=== PATIENT | male | born 1970 | race Caucasian/White ===

== ENCOUNTER → 2019-06-10 10:18 | Outpatient (BNVA) | payer OTHER, SELFPAY | PROVIDERS: Family Provider Nurse Practitioner Family; PCP Nurse Practitioner Family; Visit Provider Registered Nurse | DX: I10 Essential (primary) hypertension (principal); E03.9 Hypothyroidism, unspecified | CPT/HCPCS: 80053; 80061; 84443 ==

== ENCOUNTER → 2019-08-01 15:34 | Outpatient (BNVA) | payer OTHER, SELFPAY | PROVIDERS: Family Provider Nurse Practitioner Family; PCP Nurse Practitioner Family; Visit Provider Registered Nurse | DX: R50.9 Fever, unspecified (principal); R05 Cough; Z20.828 Contact with and (suspected) exposure to other viral communicable diseases | CPT/HCPCS: 87635 ==

== ENCOUNTER → 2019-08-17 14:45 | Outpatient (BNVA) | payer OTHER, SELFPAY | PROVIDERS: Family Provider Nurse Practitioner Family; PCP Nurse Practitioner Family; Visit Provider Registered Nurse | DX: R50.9 Fever, unspecified (principal); U07.1 COVID-19; Z20.828 Contact with and (suspected) exposure to other viral communicable diseases | CPT/HCPCS: 87635 ==

== ENCOUNTER → 2019-08-26 15:33 | Outpatient (BNVA) | payer OTHER, SELFPAY | PROVIDERS: Family Provider Nurse Practitioner Family; PCP Nurse Practitioner Family; Visit Provider Registered Nurse | DX: U07.1 COVID-19 (principal) | CPT/HCPCS: 87635 ==

== ENCOUNTER → 2019-08-31 09:07 | Outpatient (BNVA) | payer OTHER, SELFPAY | PROVIDERS: Family Provider Nurse Practitioner Family; PCP Nurse Practitioner Family; Visit Provider Registered Nurse | DX: U07.1 COVID-19 (principal) | CPT/HCPCS: 87635 ==

== ENCOUNTER → 2019-09-08 10:16 | Outpatient (BNVA) | payer OTHER, SELFPAY | PROVIDERS: Family Provider Nurse Practitioner Family; PCP Nurse Practitioner Family; Visit Provider Registered Nurse | DX: U07.1 COVID-19 (principal) | CPT/HCPCS: 87635 ==

== ENCOUNTER → 2019-09-19 11:24 | Outpatient (BNVA) | payer OTHER, SELFPAY | PROVIDERS: Family Provider Nurse Practitioner Family; PCP Nurse Practitioner Family; Visit Provider Registered Nurse | DX: U07.1 COVID-19 (principal) | CPT/HCPCS: 87635 ==

== ENCOUNTER 2019-11-01 12:02 | Outpatient (CLI) | payer OTHER, SELFPAY ==
[2019-11-01 12:10] VITALS: BMI 29.8
--- NOTE | 2019-11-01 13:00 | ECG_ITS ---
[facility] Test Date: 2019-11-01 Pat Name: Sj Aguilar Department: Room: Gender: Male [employer] Cooper: : 1970 Requested By: Samantha Herzog Order Number: [id number] Omar MD: Javid Gunderson M.D. Interpretive Statements NAME OF STUDY: TREADMILL STRESS TEST INDICATION: Left sided chest pain EXERCISE DATA: The patient was exercised by Shaun protocol. Baseline heart rate was 82 beats per minute. Baseline blood pressure was 141/85 millimeters of mercury. Target heart rate was 170 beats per minute. Maximum heart rate achieved was 146, which was 85 % of the target heart rate. Maximum blood pressure was 198/93 millimeters of mercury. Total exercise time was 9 minutes. Maximum METs achieved was 10.2, maximum VO2 was 35.7. The reason for ending the test was maximum effort achieved. The patient complained of shortness of breath during the stress test, which then resolved at the end of the test. ELECTROCARDIOGRAM: BASELINE: Showed sinus rhythm, normal axis, no significant ST-T changes at the baseline noted. EXERCISE: At the peak exercise level, no significant ST-T changes suggestive of ischemia noted. RECOVERY: During the recovery period, heart rate dropped appropriately. No significant ST-T changes in the recovery suggestive of ischemia noted. CONCLUSION: 1. Exercise capacity good. 2. Heart rate response was appropriate. 3. Blood pressure response was hypertensive. 4. Symptoms not suggestive of ischemia. 5. Electrocardiogram portion of the stress test was not suggestive of ischemia. Electronically Signed On 11-11-2019 16:44:16 CDT by Javid Gunderson M.D. [id number]
[2019-11-01 13:04] VITALS: BP 159/57; PULSE 92
== END 2019-11-01 12:03 | disposition home or self-care (01) ==
LOC: CDL 12:03
PROVIDERS: PCP Nurse Practitioner Family; Visit Provider Registered Nurse
DX: R07.89 Other chest pain (principal)
CPT/HCPCS: 93017

== ENCOUNTER → 2019-11-18 09:29 | Outpatient (BNVA) | payer OTHER, SELFPAY | PROVIDERS: PCP Nurse Practitioner Family; Visit Provider Registered Nurse | DX: E03.9 Hypothyroidism, unspecified (principal); E78.5 Hyperlipidemia, unspecified; I10 Essential (primary) hypertension | CPT/HCPCS: 80053; 80061; 84443; 85025 ==

== ENCOUNTER → 2020-04-30 13:22 | Outpatient (BNVA) | payer OTHER, SELFPAY | PROVIDERS: PCP Nurse Practitioner Family; Visit Provider Registered Nurse | DX: R10.9 Unspecified abdominal pain (principal) | CPT/HCPCS: 81000 ==

== ENCOUNTER → 2020-09-13 14:00 | Outpatient (BNVA) | payer OTHER, SELFPAY | PROVIDERS: PCP Registered Nurse; Visit Provider Registered Nurse | DX: Z11.52 Encounter for screening for COVID-19 (principal); M62.838 Other muscle spasm; Z20.822 Contact with and (suspected) exposure to COVID-19; I10 Essential (primary) hypertension | CPT/HCPCS: 87635 ==

== ENCOUNTER → 2020-11-01 11:27 | Outpatient (BNVA) | payer OTHER, SELFPAY | PROVIDERS: PCP Registered Nurse; Visit Provider Registered Nurse | DX: E03.9 Hypothyroidism, unspecified (principal); I10 Essential (primary) hypertension | CPT/HCPCS: 80053; 80061; 84443; 85025 ==

== ENCOUNTER 2022-10-20 15:21 | Outpatient (CLI) | payer OTHER, SELFPAY ==
--- NOTE | 2022-10-20 15:33 | XR_ITS ---
WS: [id number] EXAMINATION: XR lumbar spine 2-3V* [id number] REASON FOR EXAM: M54.50 - Low back pain, unspecified COMPARISON: None available. ORDER DATE: 10/20/2022 3:35 PM FINDINGS: Generalized degenerative spinal changes are seen including moderate degenerative endplate changes and marginal osteophytes. There is minimal narrowing of the intervertebral disc spaces primarily at L2-3 and L5-S1. There is no evidence of acute compression deformities or spondylolisthesis. Atherosclerot ic aortic changes noted along with a total hip replacement on the right. Short pedicles are suggested at L4 and L5 suggesting the possibility of spinal stenosis recommend cross-sectional imaging for fur ther assessment if clinically indicated IMPRESSION: MODERATE DEGENERATIVE SPINE CHANGE AND SPONDYLOSIS. POSSIBLE CONGENITAL SPINAL STENOSIS ABOVE JOLEEN MMEND CROSS-SECTIONAL IMAGING IF CLINICALLY INDICATED
== END 2022-10-20 15:22 | disposition home or self-care (01) ==
PROVIDERS: PCP Registered Nurse; Visit Provider Registered Nurse
DX: M54.50 Low back pain, unspecified (principal); M47.896 Other spondylosis, lumbar region
CPT/HCPCS: 72100

== ENCOUNTER 2022-11-13 14:22 | Outpatient (CLI) | payer OTHER, SELFPAY ==
--- NOTE | 2022-11-13 14:30 | MR_ITS ---
WS: [id number] MRI LUMBAR SPINE NONCONTRAST TECHNIQUE: Sagittal T1, T2 and STIR imaging. Axial T1 and T2 imaging. CLINICAL INFORMATION: M48.061 - Spinal stenosis, lumbar region without neurogen... COMPARISON: None. FINDINGS: Mild lumbar curve. No acute compression. Endplate Schmorl's nodes in the lower thoracic and upper lum bar spine. Disc bulging worse at L5-S1. L1-L2: Mild annular bulging. Slight effacement of the ventral thecal sac. Mild facet arthropathy. For amen are patent. Tiny annular fissure. L2-L3: Mild annular bulging. Mild facet arthropathy. Spinal canal and foramen are patent. L3-L4: Mild LEFT and no significant RIGHT foraminal narrowing. Mild facet arthropathy. L4-L5: Mild annular bulging with slight narrowing of the subarticular recess LEFT greater than RIGHT. Mild facet arthropathy. Small LEFT foraminal protrusion with slight impingement on the exiting LEFT L4 nerve root. L5-S1: Mild annular bulging with a tiny central protrusion. Small annular fissure. Impingement on the LEFT greater than RIGHT S1 nerve roots. Moderate facet arthropathy. Foramen are patent. Visualized pelvic bony structures: Normal. Paravertebral soft tissues: Normal. 1.5 cm renal cyst seen on the [employer] imaging. IMPRESSION: 1. Small central disc protrusion L5-S1 impinges the traversing LEFT greater than RIGHT S1 nerve root s in the subarticular recess. Small annular fissure. 2. Annular bulging L4-5 impinges the traversing LEFT L5 nerve root in the subarticular recess. LEFT foraminal protrusion impinges the exiting LEFT L4 nerve root. 3. Moderate facet arthropathy L4-L5 and L5-S1. 4. Mild annular bulging L1-2 with slight effacement of the ventral thecal sac.
== END 2022-11-13 14:23 | disposition home or self-care (01) ==
PROVIDERS: PCP Registered Nurse; Visit Provider Registered Nurse
DX: M48.061 Spinal stenosis, lumbar region without neurogenic claudication (principal); M51.27 Other intervertebral disc displacement, lumbosacral region; M51.36 Other intervertebral disc degeneration, lumbar region; M47.816 Spondylosis without myelopathy or radiculopathy, lumbar region
CPT/HCPCS: 72148

== ENCOUNTER → 2024-03-03 11:03 | Outpatient (BNVA) | payer OTHER, SELFPAY | PROVIDERS: PCP Registered Nurse; Visit Provider Registered Nurse | DX: E03.9 Hypothyroidism, unspecified (principal); E11.9 Type 2 diabetes mellitus without complications | CPT/HCPCS: 83036; 84443 ==

== ENCOUNTER → 2024-11-28 10:17 | Outpatient (BNVA) | payer OTHER, SELFPAY | PROVIDERS: PCP Registered Nurse; Visit Provider Registered Nurse | DX: E11.9 Type 2 diabetes mellitus without complications (principal); E03.9 Hypothyroidism, unspecified | CPT/HCPCS: 80053; 82607; 83036; 84443 ==